=== PATIENT | female | born 1955 | race Caucasian/White ===

== ENCOUNTER 2017-07-22 05:45 | Day surgery (SDC) | payer OTHER ==
[2017-07-22] MEDS ORDERED: LIDOCAINE 2% (SDV) 5 ML INJ (07:00)
[2017-07-22] MEDS ORDERED: DEXAMETHASONE 4 MG/ML 1 ML INJ (07:11)
[2017-07-22] MEDS ORDERED: MIDAZOLAM 1 MG/ML 2 ML INJ (07:53)
[2017-07-22] MEDS ORDERED: FENTAnyl 50 MCG/ML VIAL ×2 (07:53→09:02)
[2017-07-22] MEDS ORDERED: PROPOFOL 20 ML (08:14)
[2017-07-22] MEDS ORDERED: CEFAZOLIN 1 GM INJ (08:14)
[2017-07-22] MEDS ORDERED: KETOROLAC 30 MG INJ (08:37)
[2017-07-22] MEDS: BUPIVACAINE 0.5% (SDV) 30 ML INJ (08:58)
[2017-07-22] MEDS: LIDOCAINE 2% (MDV) 20 ML INJ (08:58)
[2017-07-22] MEDS: POLYMYXIN/BACITRACIN 1L IRRIG (08:58)
[2017-07-22] MEDS ORDERED: DIPHENHYDRAMINE 50 MG INJ IV (09:00)
[2017-07-22] MEDS ORDERED: MEPERIDINE 25 MG INJ IV (09:00)
[2017-07-22] MEDS ORDERED: METOCLOPRAMIDE 10 MG INJ IV (09:00)
[2017-07-22] MEDS ORDERED: ONDANSETRON 4 MG INJ (09:02)
[2017-07-22] MEDS: FENTAnyl 50 MCG/ML VIAL IV (09:21)
[2017-07-22] MEDS: ONDANSETRON 4 MG INJ IV ×2 (09:21→09:51)
[2017-07-22] MEDS ORDERED: NALOXONE (0.4 MG/ML) INJ (09:45)
== END 2017-07-22 10:40 | disposition home or self-care (01) ==
LOC: SDS 05:45
DX: M21.611 Bunion of right foot (principal); M20.11 Hallux valgus (acquired), right foot
CPT/HCPCS: 28299